=== PATIENT | male | born 1935 | race American Indian/Alaskan Native ===

== ENCOUNTER 2017-05-18 13:58 | Outpatient (CLI) | payer MEDICARE, BC ==
--- NOTE | 2017-05-18 15:14 | Mammography Report ---
BONE DENSITY STUDY: Osteoporosis. DEFINITIONS: BMD = Bone Mineral Density T-score = BMD related to mean peak bone mass of young adult (mean expressed in Standard Deviation) Z-score = Age matched BMD expressed in SD World Health Organization (WHO) Diagnostic Criteria Normal T-score > -1 SD Osteopenia T-score between -1 and -2.4 SD Osteoporosis T-score -2.5 SD or below FINDINGS: The weighted average BMD of lumbar spine L1-L4 is 1.057 with a T-score of -0.3. The bone density of L1 is 0.908 with a T value score of -1.5 The weighted average BMD of hip is 0.957 with a T-score of -0.5. The BMD of the femoral neck is 0.741 with a T. value score of -1.4. IMPRESSION: The patient's average T-score is diagnostic for normal bone density and low relative risk for fracture. Attention to bone densities of L1 and femoral neck. NOTE: BMD is not the only risk factor for fracture; also consider factors such as the patient's age, risk of falling, previous osteoporotic fracture, family history of osteoporotic fractures, current smoker, and low body weight. Peters's triangle is a region of interest in femur, predominantly of trabecular bone. It is not a true anatomic site, and [facility] does not recommend its use clinically.
== END 2017-05-18 13:59 | disposition home or self-care (01) ==
LOC: MAMMO 13:58
PROVIDERS: ATTEND Family Medicine
DX: Z00.01 Encounter for general adult medical examination with abnormal findings (principal); M81.0 Age-related osteoporosis without current pathological fracture; M85.80 Other specified disorders of bone density and structure, unspecified site
CPT/HCPCS: 77080